=== PATIENT | male | born 1935 | race Caucasian/White ===

== ENCOUNTER 2016-09-05 19:31 | Emergency (ER) | payer BC ==
[2016-09-05] MEDS ORDERED: SODIUM CHLORIDE 0.9% 1,000 ML ONE (21:54)
[2016-09-05] MEDS ORDERED: MORPHINE 4 MG/ML SYR ONE (23:53)
[2016-09-06] MEDS ORDERED: ORPHENADRINE 60 MG/2 ML AMP ONE (00:57)
[2016-09-06] MEDS ORDERED: SODIUM CHLORIDE 0.9% 1,000 ML ONE (02:03)
== END 2016-09-06 04:13 | disposition home or self-care (01) ==
LOC: ER 19:31
DX: S16.1XXA Strain of muscle, fascia and tendon at neck level, initial encounter (principal); D64.9 Anemia, unspecified; D69.3 Immune thrombocytopenic purpura; G44.219 Episodic tension-type headache, not intractable; D72.819 Decreased white blood cell count, unspecified; Z79.82 Long term (current) use of aspirin; Z79.899 Other long term (current) drug therapy
CPT/HCPCS: 36415; 70450; 71010; 72125; 80047; 80053; 81003; 83735; 85014; 85025; 85610; 85730; 93005; 96361; 96374; 96375; 99285; J2270